=== PATIENT | female | born 1995 | race Native Hawaiian/Other Pacific Islander ===

== ENCOUNTER 2019-01-09 18:46 | Emergency (ER) | payer OTHER ==
[~2019-01-09] VITALS: Ht 154.9 cm; Wt 59.0 kg
[2019-01-09 19:54] LABS: PLATELET COUNT 272 K/uL (152-353)
[2019-01-09 20:05] LABS: POTASSIUM 4.4 mmol/L (3.6-5.2)
[2019-01-09 20:51] VITALS: BP 129/81; TEMP 97.9
== END 2019-01-09 20:52 | disposition home or self-care (01) ==
LOC: ED 18:46
PROVIDERS: Family Medicine
DX: R42 Dizziness and giddiness (principal); R20.2 Paresthesia of skin; E03.9 Hypothyroidism, unspecified
CPT/HCPCS: 36415; 80053; 84443; 85027; 99283

== ENCOUNTER 2019-12-08 10:58 | Outpatient (CLI) | payer OTHER | END 2019-12-08 22:23 | disposition home or self-care (01) | LOC: LABW 10:58 | DX: E03.9 Hypothyroidism, unspecified (principal) | CPT/HCPCS: 36415; 84443 ==

== ENCOUNTER 2020-02-07 17:17 | Outpatient (CLI) | payer OTHER | END 2020-02-07 19:26 | disposition home or self-care (01) | LOC: RAD 17:17 | DX: R10.30 Lower abdominal pain, unspecified (principal) ==

== ENCOUNTER 2020-03-20 11:49 | Observation (INO) | payer OTHER ==
[~2020-03-20] VITALS: Ht 154.9 cm; Wt 72.6 kg
[2020-03-20 13:36] LABS: PLATELET COUNT 169 K/uL (152-353)
[2020-03-20 13:58] LABS: POTASSIUM 3.7 mmol/L (3.6-5.2)
[2020-03-20 14:50] VITALS: BP 122/79; TEMP 99.3; Ht 154.9 cm; Wt 72.6 kg
[2020-03-20] MEDS ORDERED: BAYER ASA325 M1 PO (14:59)
[2020-03-20] MEDS ORDERED: MULT1 PO (15:00)
[2020-03-20] MEDS ORDERED: ZINC50 MG PO (15:01)
[2020-03-20] MEDS ORDERED: PANTOPRAZOLE 40MG TA PO (15:02)
[2020-03-20] MEDS ORDERED: ACYCLOVIR800 MG PO (15:03)
[2020-03-20] MEDS ORDERED: LEVO0.0723 PO (15:04)
[2020-03-20 16:00] VITALS: BP 114/75; TEMP 98.7
[2020-03-20 20:00] VITALS: BP 117/71; TEMP 98.2
[2020-03-21] VITALS (7 sets, daily range): BP systolic 104–127; BP diastolic 59–72; TEMP 97.8–98.3
[2020-03-21 06:52] LABS: PLATELET COUNT 179 K/uL (152-353)
[2020-03-21 07:34] LABS: POTASSIUM 3.7 mmol/L (3.6-5.2)
[2020-03-22] VITALS: BP 115/70; TEMP 97.9
[2020-03-22 04:02] VITALS: BP 103/58; TEMP 97.9
[2020-03-22 06:18] LABS: PLATELET COUNT 229 K/uL (152-353)
[2020-03-22 07:33] LABS: POTASSIUM 4.4 mmol/L (3.6-5.2)
[2020-03-22 08:00] VITALS: BP 105/58; TEMP 98.2
[2020-03-22 12:00] VITALS: BP 117/73; TEMP 98.4
[2020-03-22 16:00] VITALS: BP 109/67; BP 123/58; TEMP 98.2; TEMP 98.6
--- NOTE | 2020-03-22 17:27 | NUR ---
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 2X2 APPLIED, PRESSURE APPLIED FOR 1 MINUTE. PT TOLERATED WELL. PT GIVEN DISCHARGE INSTRUCTIONS TO CON'T VITAMIN REGIMEN, PEPCID, COMBIVENT AND PULMICORT MDI'S. PT INSTRUCTED TO CON'T USE OF IS. PT ALSO INSTRUCTED TO FOLLOW UP WITH DR. VERA ON Friday03/24/2020 AT 1000. PT INSTRUCTED TO CON'T QUARENTINE UNTIL RELEASED FROM MD.
== END 2020-03-22 17:40 | disposition home or self-care (01) ==
LOC: MED/SURG 11:49
PROVIDERS: ADMIT Family Medicine
DX: U07.1 COVID-19 (principal); R63.0 Anorexia; E86.0 Dehydration; R11.2 Nausea with vomiting, unspecified; R19.7 Diarrhea, unspecified; E46 Unspecified protein-calorie malnutrition; J18.8 Other pneumonia, unspecified organism; I10 Essential (primary) hypertension
CPT/HCPCS: 36415; 80053; 80074; 82728; 83735; 84100; 85027; 85379; 86140; 87040; 93005; 94667; 94668; 94760; 96365; 96366; 96367; 96372; 96375; 99220; G0378; G0379; J0456; J0696; J1100; J1650; J1885